=== PATIENT | female | born 1990 | race American Indian/Alaskan Native ===

== ENCOUNTER 2021-01-16 13:51 | Inpatient (IN) | payer OTHER ==
[2021-01-16] MEDS ORDERED: OXYTOCIN 10 UNIT/1 ML INJ ONE (14:01)
[2021-01-16] MEDS: HYDROcodone/ACETAMINOPHEN 5-325 MG TAB PO PRN (14:25)
[2021-01-16] MEDS ORDERED: OXYTOCIN 10 UNIT/1 ML INJ IM ONE (14:40)
[2021-01-16] MEDS ORDERED: oxyCODONE /ACETAMINOPHEN 5-325MG TAB PO PRN (15:08)
[2021-01-16] MEDS ORDERED: ACETAMINOPHEN 325 MG TAB PO PRN (15:08)
--- NOTE | 2021-01-16 15:19 | History and Physical Report ---
History of Present Illness Date of examination: 01/16/21 Date of admission: 01/16/21 13:51 Chief complaint: Delivered at home; came in to have perineal laceration repaired. History of present illness: 30 year old presented by ambulance. Patient states she came in to have her perineal laceration repaired. Patient states she had a planned home and states baby and placenta came out without difficulty. Homebirth was unattended at 12:30 today (just patient and her partner were present). Patient states she received care until 27 weeks, then stopped going for care. Went to [facility] for her initial care but no OB records are available. LMP 04/07/2020. EDC 01/11/21. History of 2 full term vaginal births. States she had a 4th degree perineal laceration with her previous delivery. Patient states this was without complication. labs drawn upon admission. 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 denies: smoking, alcohol abuse, prescription drug abuse, IV drug use - Obstetrical History Expected Date of Delivery: 01/11/21 Actual Gestation: 40 Week(s) 5 Day(s) : 4 Para: 2 Hx # Term Pregnancies: 2 Number of Pregnancies: 0 Spontaneous Abortions: 2 Induced : 0 Number of Living Children: 2 Medications and Allergies Allergies Allergy/AdvReac Type Severity Reaction Status Date / Time No Known Allergies Allergy Unverified 01/16/21 14:03 Active Meds: Active Medications Hydrocodone Bitart/Acetaminophen (Hydrocodone/Acetaminophen 5-325 Mg Tab) 2 each PO Q6H PRN PRN Reason: Pain, Moderate (4-6) Last Admin: 01/16/21 14:25 Dose: 2 each Documented by: Benzocaine/Menthol (Benzocaine/Menthol 20/0.5% Top Freeland 56 Gm) 1 spray TP PRN PRN PRN Reason: Episiotomy Pain Docusate Sodium (Docusate Sodium 100 Mg Cap) 100 mg PO BID NOLA Ibuprofen (Ibuprofen 600 Mg Tab) 600 mg PO Q6H NOL[place] Magnesium Hydroxide (Magnesium Hydroxide (Mom) Oral Liqd Udc) 30 ml PO HS PRN PRN Reason: Constipation Multi-Ingredient Ointment (Lanolin/Zinc/Dimethicone (Lansinoh) 7 Gm) 1 applic TP PRN PRN PRN Reason: Sore Nipples Sodium Chloride (Sodium Chloride 0.9% 10 Ml Flush Syringe) 10 ml IV PRN NR Witch Dari/Glycerin (Witch Dari/ Glycerin Pad) 1 each TP PRN PRN PRN Reason: Hemorrhoid/cleansing/soothing Review of Systems All systems: negative (perineal tear, vaginal bleeding after homebirth) - Vital Signs Vital signs: Vital Signs Temp Pulse Resp BP 98 F 120 H 16 133/78 01/16/21 14:00 01/16/21 14:00 01/16/21 14:00 01/16/21 14:00 Temp Pulse Resp BP Pulse Ox 98 F 117 H 16 134/84 01/16/21 14:00 01/16/21 15:13 01/16/21 14:00 01/16/21 15:13 - Physical Exam Abdomen: Positive: normal appearance, soft, other (fundus firm and midline at 1 FB below umbilicus). Negative: distention, tenderness, guarding, rigidity Genitourinary (Female): Positive: other (2nd degree perineal laceration (repaired upon patient's arrival--see note)) Vagina: Positive: other (moderate amount of lochia rubra) Uterus: Positive: enlarged. Negative: tender Anus/Rectum: Positive: normal perianal skin Extremities: Negative: tenderness, edema Results All other labs normal. Assessment and Plan A: patient with h/o homebirth today. 2nd degree perineal laceration. Limited care. P: Admit. See procedure note for repair of perineal laceration. IM Pitocin. orders put in. labs drawn, UDS. Social service consult.
--- NOTE | 2021-01-16 15:36 | Procedure Note ---
OB Delivery Note - Delivery Date of Delivery: 01/16/21 - Vaginal Delivery comments: Procedure: Patient presented for repair of 2nd degree perineal laceration following planned homebirth which she states occurred at 12:30 PM today. Upon exam, large 2nd degree perineal laceration noted. 2nd degree perineal laceration repaired with 2-0 vicryl in usual sterile fashion. EBL during procedure was less than 100 cc. Vaginal sweep negative. Sponge count correct. Rectal exam negative. Fundus firm and midline. No evidence of cervical laceration. IM Pitocin administered. US ordered to check that placenta has all been delivered (placenta and membranes appear intact upon examination (pt. brought delivered placenta in with her). Patient stable in birthing room.
[2021-01-16 15:39] LABS: Bacteria,Urine 2+ /HPF (Negative); Bilirubin,Urine NEG (Negative); Blood,Urine LG (Negative); Color,Urine Red (Yellow); Urobilinogen,Urine < 2.0 mg/dL (<2.0)
[2021-01-16 15:40] LABS: RBC,Urine > 182.0 /HPF (0.0-6.0)
[2021-01-16 15:41] LABS: Basophils % (Auto) 0.1 % (0.0-1.8); Eosinophils % (Auto) 0.1 % (0.0-4.3); Hematocrit 39.4 % (30.3-42.9); Hemoglobin 12.7 gm/dl (10.1-14.3); Lymphocytes # (Auto) 0.8 K/mm3 (1.2-5.4); Lymphocytes % (Auto) 5.5 % (13.4-35.0); Mean Corpuscular HGB Conc 32 % (30-34); Mean Corpuscular Volume 92 fl (79-97); Monocytes # (Auto) 0.9 K/mm3 (0.0-0.8); Monocytes % (Auto) 6.3 % (0.0-7.3); Platelet Count 257 K/mm3 (140-440)
[2021-01-16 15:46] LABS: Amphetamine Screen,Urine Negative; Benzodiazepines Screen,Urine Negative; Cannabinoid Screen,Urine Negative; Cocaine Screen,Urine Negative; Methadone Screen,Urine Negative; Opiate Screen,Urine Negative
[2021-01-16] MEDS ORDERED: WITCH HAZEL/ GLYCERIN PAD TP PRN (16:00)
[2021-01-16] MEDS ORDERED: LANOLIN/ZINC/DIMETHICONE (LANSINOH) 7 GM TP PRN (16:00)
[2021-01-16] MEDS ORDERED: BENZOCAINE/MENTHOL 20/0.5% TOP SPRAY 56 GM TP PRN (16:00)
[2021-01-16] MEDS ORDERED: MAGNESIUM HYDROXIDE (MOM) ORAL LIQD UDC PO PRN (16:00)
--- NOTE | 2021-01-16 17:39 | Ultrasound Report ---
ULTRASOUND PELVIS INDICATION / CLINICAL INFORMATION: Check for retained placental fragments. TECHNIQUE: Transabdominal. Duplex Color Doppler used: Yes. COMPARISON: None available FINDINGS: UTERUS: The uterus is enlarged consistent with status. Within the lower uterine segment of the endometrium, there is focal hypoechoic masslike area measuring 4.2 x 2.3 cm. This is not associa rg with any internal vascularity. The appearance is more suggestive of retained hemorrhage. Above th is area, the endometrium has a more normal appearance with a thickness of 7 mm. RIGHT ADNEXA: No significant ovarian cyst or mass. Normal color Doppler blood flow. LEFT ADNEXA: No significant ovarian cyst or mass. Normal color Doppler blood flow. ADDITIONAL FINDINGS: None. IMPRESSION: 1. 4.2 cm hypoechoic masslike area located within the endometrium of the lower uterine segment withou t associated vascularity. The appearance is more suggestive of retained hemorrhage rather than retain ed products. A follow-up ultrasound in 24-48 hours can be obtained to ensure area resolves. Signer Name: Talia Omalley MD Signed: 01/16/2021 5:35 PM Workstation Name: [id number]
[2021-01-16] MEDS: DOCUSATE SODIUM 100 MG CAP PO SCH (20:16)
--- NOTE | 2021-01-16 22:04 | Event Note ---
Date: 01/16/21 Pelvic US shows possible clot within EUSEBIA. Oral Methergine series ordered. Urine C&S pending. IV Rocephin ordered. Called patient's nurse and informed her of these orders.
[2021-01-16] MEDS: METHYLERGONOVINE 0.2 MG TABLET PO SCH (22:54)
[2021-01-16] MEDS: cefTRIAXone/NS 1 GM/50 ML 1 GM/50 ML BAG IV SCH (22:54)
[2021-01-17] MEDS: IBUPROFEN 600 MG TAB PO SCH ×3 (04:28→22:22)
[2021-01-17] MEDS: METHYLERGONOVINE 0.2 MG TABLET PO SCH ×3 (06:40→22:20)
[2021-01-17 09:55] LABS: Basophils % (Auto) 0.2 % (0.0-1.8); Eosinophils % (Auto) 0.3 % (0.0-4.3); Hematocrit 35.2 % (30.3-42.9); Hemoglobin 11.4 gm/dl (10.1-14.3); Lymphocytes # (Auto) 1.5 K/mm3 (1.2-5.4); Lymphocytes % (Auto) 14.8 % (13.4-35.0); Mean Corpuscular HGB Conc 32 % (30-34); Mean Corpuscular Volume 91 fl (79-97); Monocytes # (Auto) 0.9 K/mm3 (0.0-0.8); Platelet Count 201 K/mm3 (140-440); Red Blood Count 3.87 M/mm3 (3.65-5.03); Red Cell Distribution Width 14.9 % (13.2-15.2)
--- NOTE | 2021-01-17 12:14 | Progress Note ---
Assessment and Plan A: S/P with 2nd degree lac UTI Tachycardia p: Continue routine pp care Continue Rocephin for uti Awaiting urine cul Encourage fluids D/C home tomm if stable Subjective - Subjective Date of service: 01/17/21 Patient reports: appetite normal, voiding normally, pain well controlled, ambulating normally : doing well, bottle feeding Objective - Vital Signs Latest vital signs: Vital Signs Temp Pulse Resp BP BP Pulse Ox Pulse Ox 01/17/21 08:12 98.6 F 117 H 20 120/77 93 01/17/21 04:28 18 01/16/21 23:30 98.4 F 118 H 18 126/78 100 01/16/21 20:05 98.6 F 108 H 18 128/79 100 01/16/21 20:00 100 01/16/21 18:21 97 01/16/21 16:15 97 01/16/21 15:52 115 H 136/84 01/16/21 15:37 116 H 131/84 01/16/21 15:22 113 H 126/78 01/16/21 15:13 117 H 134/84 01/16/21 15:00 01/16/21 14:52 113 H 124/81 01/16/21 14:00 98 F 120 H 16 133/78 Pulse Ox 01/17/21 08:12 01/17/21 04:28 01/16/21 23:30 01/16/21 20:05 01/16/21 20:00 01/16/21 18:21 99 01/16/21 16:15 01/16/21 15:52 01/16/21 15:37 01/16/21 15:22 01/16/21 15:13 01/16/21 15:00 99 01/16/21 14:52 01/16/21 14:00 Intake and Output 01/16/21 01/17/21 01/17/21 22:59 06:59 14:59 Intake Total 240 960 240 Output Total 450 1300 Balance -210 -340 240 Intake: Oral 360 240 Intake, Free Water 240 600 Output: Urine 450 1300 Void 450 1300 Other: Total, Intake Amount 360 240 Total, Output Amount 450 500 # Voids Void 1 1 1 Estimated Blood Loss 200 - Exam Breasts: Present: normal Abdomen: Present: normal appearance, normal bowel sounds Vulva: both: normal Uterus: Present: normal, firm, fundal height below umbilicus Extremities: Present: normal Incision: Present: normal, intact - Labs Labs: Abnormal lab results 01/16/21 01/16/21 01/17/21 Range/Units 15:03 Unknown 08:49 WBC 14.0 H (4.5-11.0) K/mm3 Lymph % (Auto) 5.5 L (13.4-35.0) % Cobb % (Auto) 9.0 H (0.0-7.3) % Lymph # (Auto) 0.8 L (1.2-5.4) K/mm3 Cobb # (Auto) 0.9 H 0.9 H (0.0-0.8) K/mm3 Seg Neutrophils % 88.0 H 75.7 H (40.0-70.0) % Seg Neutrophils # 12.3 H (1.8-7.7) K/mm3 Urine WBC (Auto) 13.0 H (0.0-6.0) /HPF
[2021-01-17] MEDS ORDERED: LACTATED RINGERS 1,000 ML IV SCH (13:00)
[2021-01-17] MEDS: DOCUSATE SODIUM 100 MG CAP PO SCH ×2 (13:25→22:20)
[2021-01-17] MEDS: cefTRIAXone/NS 1 GM/50 ML 1 GM/50 ML BAG IV SCH (22:20)
--- NOTE | 2021-01-17 22:22 | Event Note ---
Date: 01/17/21 Asked to see the patient for tachycardia Tachycardia secondary to volume depletion IV fluids for now Consult to follow Repeat a.m. labs
[2021-01-17] MEDS ORDERED: SODIUM CHLORIDE 0.9% 1000 ML 1,000 ML IV SCH (22:30)
[2021-01-18] MEDS: IBUPROFEN 600 MG TAB PO SCH (04:46)
[2021-01-18] MEDS: DOCUSATE SODIUM 100 MG CAP PO SCH (04:50)
--- NOTE | 2021-01-18 11:03 | Progress Note ---
Assessment and Plan A: S/P Homebirth Tachycardia 2nd to volume depletion per Dr Dillon p: Continue routine pp odors Encourage fluids Repeat cbc this am per Dr Dillon Awaiting urine culture D/c home with 24-48 hrs when cleared by Dr Dillon Subjective - Subjective Date of service: 01/18/21 Principal diagnosis: s/p homebirth Patient reports: appetite normal, voiding normally, pain well controlled, flatus, ambulating normally : doing well, nursing well Objective - Vital Signs Latest vital signs: Vital Signs Temp Pulse Resp BP Pulse Ox Pulse Ox 01/18/21 07:41 98.4 F 102 H 16 127/86 97 01/18/21 00:50 98.6 F 108 H 20 129/82 98 01/17/21 20:00 99 01/17/21 18:05 100 01/17/21 16:23 100 01/17/21 16:09 98.1 F 111 H 20 116/82 97 01/17/21 14:00 100 01/17/21 12:13 100 01/17/21 12:04 97.9 F 106 H 20 128/85 95 Intake and Output 01/17/21 01/18/21 01/18/21 22:59 06:59 14:59 Intake Total 480 240 Balance 480 240 Intake: Oral 480 240 Other: Total, Intake Amount 240 240 # Voids Void 1 1 - Exam Breasts: Present: normal Abdomen: Present: normal appearance, soft, normal bowel sounds Vulva: both: normal Uterus: Present: normal, firm, fundal height below umbilicus Extremities: Present: normal Incision: Present: normal, intact
[2021-01-18 16:07] LABS: Basophils # (Auto) 0.1 K/mm3 (0.0-0.1); Basophils % (Auto) 0.6 % (0.0-1.8); Eosinophils # (Auto) 0.2 K/mm3 (0.0-0.4); Eosinophils % (Auto) 1.8 % (0.0-4.3); Hematocrit 35.3 % (30.3-42.9); Hemoglobin 11.1 gm/dl (10.1-14.3); Lymphocytes # (Auto) 1.9 K/mm3 (1.2-5.4); Lymphocytes % (Auto) 19.4 % (13.4-35.0); Mean Corpuscular HGB Conc 32 % (30-34); Mean Corpuscular Volume 91 fl (79-97); Monocytes # (Auto) 0.7 K/mm3 (0.0-0.8); Monocytes % (Auto) 7.6 % (0.0-7.3); Platelet Count 245 K/mm3 (140-440); Red Blood Count 3.88 M/mm3 (3.65-5.03)
[2021-01-18 17:03] VITALS: BP 127/86
[2021-01-18] MEDS: HYDROcodone/ACETAMINOPHEN 5-325 MG TAB PO PRN (18:03)
--- NOTE | 2021-01-18 18:08 | Electrocardiograph Report ---
[facility] Test Date: 2021-01-17 Test Time: 16:59:32 Pat Name: JOSEFINA CAMPBELL Department: Room: 2138 1 Gender: F [employer]ty Plant Supervisor: BARBARA JASSO : 1990 Requested By: RADHA TORRES Order Number: [id number] Reading MD: Fina Marion Measurements Intervals [place] Rate: 110 P: 57 NM: 120 QRS: 15 QRSD: 72 T: 7 QT: 322 QTc: 435 Interpretive Statements Sinus tachycardia Low voltage, precordial leads No previous ECG available for comparison Electronically Signed On 01-18-2021 18:07:44 EDT by Fina Marion
--- NOTE | 2021-01-19 17:21 | Discharge Summary ---
Providers - Providers Date of Admission: 01/16/21 13:51 Date of discharge: 01/18/21 Attending physician: MARCY BAXTER MD 01/16/21 15:30 Consult to Case Management [CONS] Routine Services Needed at Discharge: Store Cashier Notified:: yes via computer Phone number called:: [phone] Was contact made?: No Time called:: 16:49 Comment:: computer input Additional Physician Instructions: Home delivery; limited care 01/17/21 12:15 Consult to Physician [CONS] Routine Comment: had 1 dose of Rocephin for uti Consulting Provider: ZULY MCLEAN Physician Instructions: Reason For Exam: tachycardia Primary care physician: MARCY BAXTER MD Hospitalization Reason for admission: other (planned home delivery with 2nd degree lac) Delivery: Episiotomy: none Laceration: 2nd degree Incision: normal, intact Other procedures: other (ekg) complications: other (tachycardia) Discharge diagnosis: IUP at term delivered Hospital course: Pt arrived to [facility] with baby in her arms. She had a planned home delivery and stated she only came to the hospital to have her vagina sewn up. Pt dev tachycardia pp and was seen by the hospitalist. She was d/c'd home per Hospitalist. See H&P, delivery summary, and pp notes. Condition at discharge: Stable Disposition: DC-01 TO HOME OR SELFCARE Plan - Provider Discharge Summary Activity: routine, no strenuous exercise Diet: routine Instructions: routine Additional instructions: [] Smoking cessation referral if applicable(refer to patient education folder for contact #) [] Refer to [facility] Book[facility] Call your doctor immediately for: * Fever > 100.5 * Heavy vaginal bleeding ( >1 pad per hour) * Severe persistent headache * Shortness of breath * Reddened, hot, painful area to leg or breast * Drainage or odor from incision. * Keep incision clean and dry at all times and follow doctor's instructions regarding bathing/showering - Follow up plan Follow up: MARCY BAXTER MD [Primary Care Provider] - 6 Weeks (Call ob office for 4-6 weeks follow up appt.) Forms: [facility] Discharge Summary
== END 2021-01-18 18:30 | disposition home or self-care (01) | DRG 769 ==
LOC: LD 13:51 → OB 16:12
PROVIDERS: ADMIT Obstetrics & Gynecology; ATTEND Obstetrics & Gynecology
PROC: 0KQM0ZZ Repair Perineum Muscle, Open Approach (ICD-10-PCS; principal; 2021-01-16)
DX: Z39.0 Encounter for care and examination of mother immediately after delivery (principal); O75.4 Other complications of obstetric surgery and procedures; O70.1 Second degree perineal laceration during delivery; O86.20 Urinary tract infection following delivery, unspecified; O99.285 Endocrine, nutritional and metabolic diseases complicating the puerperium; R00.0 Tachycardia, unspecified; E86.9 Volume depletion, unspecified; Z3A.40 40 weeks gestation of pregnancy; Z83.3 Family history of diabetes mellitus; Z82.49 Family history of ischemic heart disease and other diseases of the circulatory system; Z82.3 Family history of stroke; Z20.822 Contact with and (suspected) exposure to COVID-19
CPT/HCPCS: 36415; 76856; 76857; 80307; 81001; 85025; 86592; 86706; 86762; 86850; 86900; 86901; 87086; 87806; 93005; 99211; G0378; G0463; J0696; J2590; J7120; U0003